=== PATIENT | female | born 1965 | race Caucasian/White ===

== ENCOUNTER 2021-01-09 17:24 | Emergency (ER) | payer OTHER ==
[2021-01-09] MEDS ORDERED: solu-MEDROL 125 MG, Sterile H2O 10 ml 2 ML IV ONE ×2 (17:48)
[2021-01-09] MEDS ORDERED: Pepcid 20 MG VIAL IV ONE ×2 (17:48→17:52)
[2021-01-09] MEDS ORDERED: BENADRYL 50 MG/ML IV ONE (17:48)
[2021-01-09] MEDS ORDERED: Ativan 2 MG/1 ML VIAL IV ONE (17:49)
[2021-01-09] MEDS ORDERED: BENADRYL 50 MG/ML ONE (17:51)
[2021-01-09] MEDS ORDERED: Ativan 2 MG/1 ML VIAL ONE (17:51)
[2021-01-09] MEDS ORDERED: Sterile H2O 10 ml IJ ONE (17:52)
[2021-01-09] MEDS ORDERED: solu-MEDROL ONE (17:52)
--- NOTE | 2021-01-09 19:38 | ERPHSYRPT ---
- History of Present Illness Time Seen by Provider: 01/09/21 17:35 Source: patient Exam Limitations: no limitations Patient Subjective Stated Complaint: Allergic reaction Triage Nursing Assessment: Patient ambulated into ED and transferred self to bed. Patient A+O X3. Patient's skin flushed, warm and dry. Patient complains of lip swelling and facial swelling on and off for the past month and a half. Patient complains of throat swelling and having trouble swallowing. Patient denies SOB. Patient denies pain or discomfort. Physician History: 55 years old female with history of hypertension presented to the ER with chief complaint of symptoms of allergic reaction. Patient reports she is having off and on lip swelling/tongue swelling and soreness/scratchiness in the throat for the last few weeks. She has been seen in the ER couple of times and is scheduled to have appointment with hoist mechanic early next month. Patient reports almost 2 hours ago she started to have some burning sensation, swelling and numb feeling on the lip/right cheek and scratchiness in the throat and some difficulty swallowing. She took Benadryl with no significant relief. Patient also reports dryness in the mouth which is worsening lately. She denies any difficulty breathing. Patient was tearful and very anxious and does not know what to do which is driving her crazy. Timing/Duration: today, hour(s) (2), constant, gradual onset, worse Severity: moderate Associated Symptoms: denies symptoms Allergies/Adverse Reactions: amoxicillin [From Augmentin] Allergy (Verified 01/09/21 17:27) clavulanic acid [From Augmentin] Allergy (Verified 01/09/21 17:27) Home Medications: AMITRIPTYLINE HCL 50 mg Tab [AMITRIPTYLINE HCL 50 mg Tablet] 100 mg PO HS 01/09/21 [History] Losartan/Hydrochlorothiazide [Losartan-Hctz 50-12.5 mg Tab] 1 tab PO DAILY 01/09/21 [History] Hx Influenza Vaccination/Date Given: No Hx Pneumococcal Vaccination/Date Given: No Immunizations Up to Date: Yes Travel Risk - International Travel Have you traveled outside of the country in past 3 weeks: No - Coronavirus Screening Are you exhibiting any of the following symptoms?: No Symptoms: Shortness of Breath - Vaccine Status Have you recieved a Covid-19 vaccination: Yes [employer]: [employer] - Vaccination Dates Date of 2cond Vaccination (if applicable): July 2020 - Review of Systems Constitutional: No Symptoms Eyes: No Symptoms Ears, Nose, & Throat: Mouth Swelling, Throat Swelling Respiratory: No Symptoms Cardiac: No Symptoms Abdominal/Gastrointestinal: No Symptoms Genitourinary Symptoms: No Symptoms Skin: No Symptoms Neurological: No Symptoms Psychological: Anxiety Endocrine: No Symptoms Hematologic/Lymphatic: No Symptoms - Past Medical History Pertinent Past Medical History: Yes Neurological History: No Pertinent History ENT History: No Pertinent History Cardiac History: High Cholesterol, Hypertension Respiratory History: No Pertinent History Endocrine Medical History: No Pertinent History Musculoskeletal History: No Pertinent History GI Medical History: No Pertinent History History: No Pertinent History Psycho-Social History: No Pertinent History Female Reproductive Disorders: No Pertinent History - Past Surgical History Past Surgical History: No Neuro Surgical History: No Pertinent History Cardiac: No Pertinent History Respiratory: No Pertinent History Gastrointestinal: No Pertinent History Genitourinary: No Pertinent History Musculoskeletal: No Pertinent History Female Surgical History: No Pertinent History - Social History Smoking Status: Never smoker Exposure to second hand smoke: No Drug Use: none - Female History Hx Now: No - Nursing Vital Signs Nursing Vital Signs: Initial Vital Signs Temperature 98.1 F 01/09/21 17:31 Pulse Rate 119 H 01/09/21 17:31 Respiratory Rate 18 01/09/21 17:31 Blood Pressure 157/99 01/09/21 17:31 O2 Sat by Pulse Oximetry 98 01/09/21 17:31 Pain Scale Pain Intensity 0 - Physical Exam General Appearance: no apparent distress, alert, anxiety Eye Exam: PERRL/EOMI, eyes nml inspection Ears, Nose, Throat Exam: dry mucous membranes, pharyngeal erythema, other (No obvious tongue swelling. No uvula swelling. Clear pharynx well visible.) Neck Exam: normal inspection, non-tender, supple, full range of motion Respiratory Exam: normal breath sounds, lungs clear Cardiovascular Exam: normal heart sounds, tachycardia Back Exam: normal inspection, normal range of motion Extremity Exam: normal inspection, normal range of motion Neurologic Exam: alert, oriented x 3, cooperative, air pollution inspector II-XII nml as tested, sensation nml, No normal mood/affect (Anxious) Skin Exam: normal color SpO2 Interpretation: normal SpO2: 94 O2 Delivery: Room Air Ordered Tests: Active Orders 24 hr Category Date Time Status IV Insertion STAT Care 01/09/21 17:39 Completed Medication Summary Discontinued Medications Generic Name Dose Route Start Last Admin Trade Name Nelia PRN Reason Stop Dose Admin Methylprednisolone Sodium 0 mg 01/09/21 17:48 01/09/21 17:56 Succinate 125 mg/ Sterile IV 01/09/21 17:49 125 mg Water 2 ml STAT ONE Administration Diphenhydramine HCl 25 mg 01/09/21 17:48 01/09/21 17:55 Diphenhydramine Hcl 50 Mg/Ml Vial IV 01/09/21 17:49 25 mg STAT ONE Administration Diphenhydramine HCl Confirm 01/09/21 17:51 Diphenhydramine Hcl 50 Mg/Ml Vial Administered 01/09/21 17:52 Dose 50 mg .ROUTE .STK-MED ONE Famotidine 20 mg 01/09/21 17:48 01/09/21 17:55 Famotidine 20 Mg/1 Vial IV 01/09/21 17:49 20 mg STAT ONE Administration Famotidine Confirm 01/09/21 17:52 Famotidine 20 Mg/1 Vial Administered 01/09/21 17:53 Dose 20 mg IV .STK-MED ONE Lorazepam 1 mg 01/09/21 17:49 01/09/21 17:55 Lorazepam 2 Mg/1 Ml 2 Mg Vial IV 01/09/21 17:50 1 mg STAT ONE Administration Lorazepam Confirm 01/09/21 17:51 Lorazepam 2 Mg/1 Ml 2 Mg Vial Administered 01/09/21 17:52 Dose 2 mg .ROUTE .STK-MED ONE Methylprednisolone Sodium Succinate Confirm 01/09/21 17:52 Methylprednis Sod Succ 125 Mg/2 Ml Vial Administered 01/09/21 17:53 Dose 125 mg .ROUTE .STK-MED ONE Sterile Water Confirm 01/09/21 17:52 Water For Injection,Sterile 10 Ml Vial Administered 01/09/21 17:53 Dose 10 ml IJ .STK-MED ONE - Progress Progress: improved Progress Note: 01/09/21 19:34 She is given Solu-Medrol/Benadryl/Pepcid along with Ativan, observed in the ER and feeling much better. Part of her symptoms are secondary to anxiety as well. We will continue with these meds to go home. She is advised to keep appoi ntment with hoist mechanic discussed signs symptoms of worsening needing return to ER which he seems understanding. Stable for discharge. Counseled pt/family regarding: diagnosis, need for follow-up - Departure Departure Disposition: Home Clinical Impression: Allergic reaction Qualifiers: Encounter type: initial encounter Qualified Code(s): T78.40XA - Allergy, unspecified, initial encounter Condition: Stable Critical Care Time: No Referrals: ONEIL BROWN PERSONNEL PSYCHOLOGIST [Primary Care Provider] - (Call tomorrow for reevaluation) Instructions: Angioedema (DC), Anaphylaxis (DC) Additional Instructions: Keep appointment with hoist mechanic. Take Benadryl as needed. Follow-up with primary care for reevaluation. Return to ER for worsening swelling/difficulty breathing/choking sensation. Use EpiPen as needed Prescriptions: Diphenhydramine HCl 25 mg [Benadryl 25 mg Capsule] 25 mg PO Q4H PRN PRN #20 cap PRN Reason: Allergies Prednisone 20 mg [Deltasone 20 mg] 60 mg PO DAILY 5 Days #15 tablet Epinephrine [Epipen] 0.3 mg IM DIRECTIONS UNKNOWN 1 Days #0.3 ml Famotidine 20 mg [Pepcid 20 MG] 20 mg PO BID #14 tablet
[2021-01-09 19:51] VITALS: BP 126/84; PULSE 96
[2021-01-09 22:39] VITALS: O2SAT 94
== END 2021-01-09 19:59 | disposition home or self-care (01) ==
LOC: ED 17:24
DX: T78.40XA Allergy, unspecified, initial encounter (principal)
CPT/HCPCS: 36000; 96374; 96375; 99284; J1200; J2060; J2930